=== PATIENT | female | born 1985 ===

== ENCOUNTER 2019-03-14 11:13 | Observation (INO) | payer OTHER ==
[2019-03-14] MEDS ORDERED: NALOXONE 0.4 MG/ML 1 ML VIAL IV PRN (12:07)
[2019-03-14] MEDS ORDERED: ALPRAZolam 0.25 MG TAB PO PRN (12:09)
[2019-03-14 13:06] LABS: Basophils % (A) 1 %; Eosinophils # (A) 0.1 k/uL (0-0.7); Eosinophils % (A) 2 %; HCT 37.6 % (34.0-46.0); HGB 12.3 gm/dL (11.4-16.0); Lymphocytes # (A) 1.9 k/uL (1.0-4.8); Lymphocytes % (A) 31 %; MCH 32.3 pg (25.0-35.0); MCHC 32.7 g/dL (31.0-37.0); MCV 98.9 fL (80.0-100.0); Mean Platelet Volume 8.5; Monocytes # (A) 0.3 k/uL (0-1.0); Monocytes % (A) 6 %; Neutrophils # (A) 3.7 k/uL (1.3-7.7); Neutrophils % (A) 60 %; Platelet Count 226 k/uL (150-450); RBC 3.81 m/uL (3.80-5.40); RDW 14.3 % (11.5-15.5); WBC 6.1 k/uL (3.8-10.6)
[2019-03-14 13:08] LABS: ALT 13 U/L (9-52); AST 14 U/L (14-36); African American GFR (CKD) >90 (>60 ml/min/1.73 sqM); Albumin 3.8 g/dL (3.5-5.0); Alkaline Phosphatase 57 U/L (38-126); Anion Gap 8 mmol/L; Blood Urea Nitrogen 21 mg/dL (7-17); Calcium 9.2 mg/dL (8.4-10.2); Carbon Dioxide 22 mmol/L (22-30); Chloride 109 mmol/L (98-107); Glucose 88 mg/dL (74-99); Non-African American GFR(CKD) >90 (>60 ml/min/1.73 sqM); Potassium 4.4 mmol/L (3.5-5.1); Sodium 139 mmol/L (137-145); Total Bilirubin 0.2 mg/dL (0.2-1.3); Total Protein 6.1 g/dL (6.3-8.2)
--- NOTE | 2019-03-14 13:59 | XR ---
EXAMINATION TYPE: XR chest 1V portable DATE OF EXAM: 03/14/2019 COMPARISON: NONE HISTORY: Pneumonia clinically. TECHNIQUE: Single frontal view of the chest is obtained. FINDINGS: Suboptimal visualization of the peripheral left lung base secondary to patient body habitu s. Within the remainder the lungs there is no focal air space opacity, pleural effusion, or pneumotho rax seen. The cardiac silhouette size is within normal limits. The osseous structures are intact. IMPRESSION: Suboptimal visualization of the peripheral left lung base secondary to patient body habi tus. The remainder the lungs are well aerated and clear.
[2019-03-14 14:41] VITALS: BMI 83.2
[2019-03-14] MEDS: HYDROcodone/APAP 5-325MG 1 EACH TAB PO PRN ×2 (14:44→20:22)
[2019-03-14] MEDS ORDERED: NAPROXEN 250 MG TAB PO PRN (15:03)
[2019-03-14] MEDS ORDERED: IPRATROPIUM-ALBUTEROL 3 ML NEB INHALATION PRN (15:05)
[2019-03-14] MEDS: IPRATROPIUM-ALBUTEROL 3 ML NEB INHALATION SCH ×2 (15:41→19:23)
[2019-03-14] MEDS: SODIUM CHLORIDE 0.9% 1,000 ML IV SCH (16:37)
[2019-03-14] MEDS: HYDROmorphone 0.5 MG/0.5 ML SYRINGE IVP PRN ×2 (16:41→21:41)
--- NOTE | 2019-03-14 17:26 | HP ---
HISTORY AND PHYSICAL CHIEF COMPLAINT: Chest pain. HISTORY OF PRESENT ILLNESS: 33-year-old woman with a past medical history of no significant symptoms except some allergy symptoms and not being followed by no primary physician in the outpatient setting, presented to [facility] with complaints of right-sided chest pain. The patient had right-sided chest pain radiating to the front of the chest into the back and shoulder, which is increasing with touch according to her and the patient had multiple evaluations at [facility] including CT scan and chest x-ray. The CT scan of the chest full report is awaited. Chest x-ray showed some eladio lesions on the right side. There is no history of fever, rigors or chills. No history of headache, loss of consciousness or seizures. 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 PAST MEDICAL HISTORY: Allergies, bipolar. MEDICATIONS: Prior to admission: 1. Naprosyn 220 mcg p.o. daily p.r.n. 2. Claritin 10 mg. 3. Albuterol p.r.n. 4. Tylenol p.r.n. ALLERGIES: None. FAMILY HISTORY: History of hypertension in the family. SOCIAL HISTORY: Previous history of smoking. No history of current smoking or alcohol intake. REVIEW OF SYSTEMS: ENT: No diminished vision. No diminished hearing. CARDIOVASCULAR system: As mentioned earlier. RESPIRATORY: As mentioned earlier. GI no nausea or vomiting. : No dysuria. NERVOUS SYSTEM: No numbness or weakness. ALLERGY/IMMUNOLOGY: No allergy or hayfever. MUSCULOSKELETAL as mentioned earlier. HEMATOLOGY/ONCOLOGY: No history of anemia. ENDOCRINE: No history of diabetes or hypothyroidism. CONSTITUTIONAL: As mentioned earlier. DERMATOLOGY: Negative. RHEUMATOLOGY negative. PSYCHIATRY as mentioned earlier. PHYSICAL EXAMINATION: Alert and oriented x3. Pulse is 80. Blood pressure is 128/80, respirations 20, temperature normal. Pulse ox normal. HEENT conjunctivae normal. Oral mucosa moist. NECK is no jugular venous distention. No carotid bruit. No lymph node enlargement. Cardiovascular is S1, S2 muffled. Respirations: Breath sounds diminished in the bases. A few scattered rhonchi especially on the right side. No bronchial breath sounds. ABDOMEN: Soft, nontender. No mass palpable. LEGS no edema, no swelling. NERVOUS SYSTEM: Higher functions as mentioned earlier. Moves all 4 limbs. No focal motor or sensory deficits. Lymphatics: No lymph nodes palpable in the neck, axillae or groin. Joints: No active deforming arthropathy. LABS: CBC within normal limits. Sodium 139, potassium 4.4. ASSESSMENT: 1. Right-sided chest pain, rule out coronary artery disease. 2. Possible pleurisy or tracheobronchitis rule out early pneumonia. 3. History of allergies. 4. History of degenerative joint disease. 5. History of bipolar. 6. Remote history of nicotine dependence. RECOMMENDATIONS AND DISCUSSION: In this 33-year-old woman who presented with multiple medical issues, at this time, I recommend to continue current medications, management and symptomatic treatment. Otherwise, I would also recommend pain medications, empiric bronchodilators, antibiotics. Prognosis guarded because of multiple complex medical issues. Cardiology has been consulted. A 2D echo with Doppler will be ordered. Further recommendations to follow. I also recommend the patient follow up with primary physician closely after discharge also. The patient understands and agrees. MMODL / JACLYNN: [id number] /
[2019-03-14] MEDS: TEMAZEPAM 15 MG CAP PO PRN (23:59)
[2019-03-15] MEDS: HYDROmorphone 0.5 MG/0.5 ML SYRINGE IVP PRN ×2 (06:13→15:33)
[2019-03-15 07:14] LABS: Basophils % (A) 0 %; Eosinophils # (A) 0.1 k/uL (0-0.7); Eosinophils % (A) 2 %; HCT 39.2 % (34.0-46.0); HGB 12.7 gm/dL (11.4-16.0); Lymphocytes % (A) 32 %; MCH 31.9 pg (25.0-35.0); MCHC 32.4 g/dL (31.0-37.0); MCV 98.3 fL (80.0-100.0); Monocytes # (A) 0.4 k/uL (0-1.0); Monocytes % (A) 6 %; Neutrophils # (A) 3.7 k/uL (1.3-7.7); Neutrophils % (A) 59 %; Platelet Count 238 k/uL (150-450); RBC 3.98 m/uL (3.80-5.40); RDW 13.5 % (11.5-15.5); WBC 6.2 k/uL (3.8-10.6)
[2019-03-15 07:25] LABS: African American GFR (CKD) >90 (>60 ml/min/1.73 sqM); Anion Gap 8 mmol/L; Blood Urea Nitrogen 12 mg/dL (7-17); Calcium 9.2 mg/dL (8.4-10.2); Carbon Dioxide 25 mmol/L (22-30); Chloride 106 mmol/L (98-107); Glucose 86 mg/dL (74-99); Non-African American GFR(CKD) >90 (>60 ml/min/1.73 sqM); Potassium 4.7 mmol/L (3.5-5.1); Sodium 139 mmol/L (137-145)
[2019-03-15] MEDS: IPRATROPIUM-ALBUTEROL 3 ML NEB INHALATION SCH ×4 (07:27→20:53)
[2019-03-15] MEDS: PANTOPRAZOLE 40 MG TABLET PO SCH (10:23)
[2019-03-15] MEDS: LORATADINE 10 MG TAB PO SCH (10:23)
--- NOTE | 2019-03-15 11:33 | P.CRDCN ---
History of Present Illness History of present illness: This is Cari Lay PA-C dictating a consult on this patient The patient was interviewed and examined by me as well as by Dr. Rodas Case discussed with Dr. Rodas and he agrees with the plan of care IMPRESSION / ASSESSMENT: Atypical chest discomfort, pleuritic, reproducible, likely musculoskeletal, EKG and cardiac enzymes normal Current Smoker PLAN: Obtain records from [facility] Check lipid panel, hemoglobin A1c, d-dimer Smoking cessation advised Patient is clear for discharge from a cardiology standpoint, Further cardiac workup as an outpatient HPI Patient is a 33-year-old female with no significant past medical history who presented to [facility] with complaints of chest discomfort and was transferred here for further evaluation. Her chest discomfort started as a sharp pain in the right side of her chest 2 days ago. She was sitting on the couch when it started. It is a constant sharp stabbing pain in the right side that radiates to her right shoulder blade. It is worse when she takes a deep breath or pulls herself up using her right arm. Sometimes pressing on it relieves it. She admits to associated diaphoresis. She has never had symptoms like this before. She has also had a cough for the last week with some productive white sputum in the morning which she attributes to her ALLERGIES. Denies fevers or chills. Denies dyspnea on exertion. Denies dizziness, lightheadedness or syncope. Per the notes the patient had a computed tomography scan and chest x-ray which showed some eladio lesions on the right side at [facility], I do not have the reports. Her x-ray here shows no focal airspace opacities. Her EKG shows sinus mechanism, normal TN, narrow QRS, no ST changes noted. Her troponins are negative 3. Patient seen and examined resting comfortably in bed. She is being treated with [place] and Dilaudid and states her pain has improved with the pain medications. She has smoked cigarettes on and off for the last 20 years Has not seen a primary care provider in the last few years due to losing insu warner ROS: No fevers, chills or rigors, postive for productive cough no nausea, vomiting or diarrhea, no hematuria, dysuria, no strokes or seizures, no skin lesions. EXAMINATION: Temperature 97.4F, pulse 94, respirations 16, blood pressure 109/74, oxygen saturation 96% on room air Patient seen and examined resting in bed, no acute distress Lungs are clear to auscultation bilaterally, no rhonchi, wheezing or crackles appreciated Heart is regular, normal S1-S2, no murmurs appreciated No lower extremity edema noted Abdomen soft and nontender REVIEW OF LABS, ECG & MEDICAL DATA Chest x-ray showed no focal airspace opacity, pleural effusion or pneumothorax WBC 6.2, hemoglobin 12.7, potassium 4.7, BUNs 12, creatinine 0.57, troponins negative 3, Past Medical History Past Medical History: No Reported History History of Any Multi-Drug Resistant Organisms: None Reported Additional Past Surgical History / Comment(s): neck surgery, 3 discs replaced 2013 Past Anesthesia/Blood Transfusion Reactions: No Reported Reaction Past Psychological History: Bipolar Smoking Status: Former smoker Past Alcohol Use History: Occasional Past Drug Use History: None Reported - Past Family History Mother Family Medical History: Hypertension Father Family Medical History: Hypertension Medications and Allergies Home Medications Medication Instructions Recorded Confirmed Type Acetaminophen Tab [Tylenol Tab] 650 mg PO Q6H PRN 03/14/19 03/14/19 History Albuterol Sulfate [Proair Hfa] 2 puff INHALATION RT-Q6H PRN 03/14/19 03/14/19 History Loratadine [Claritin] 10 mg PO DAILY 03/14/19 03/14/19 History Naproxen Sodium [Aleve] 220 mg PO DAILY PRN 03/14/19 03/14/19 History Allergies Allergy/AdvReac Type Severity Reaction Status Date / Time No Known Allergies Allergy Verified 03/14/19 14:27 Physical Exam Vitals: Vital Signs Temp Pulse Resp BP Pulse Ox 03/15/19 08:00 97.4 F L 94 16 109/74 96 03/15/19 04:00 97.5 F L 72 20 102/62 95 03/15/19 03:40 16 03/14/19 23:56 97.8 F 58 L 16 95/58 96 03/14/19 23:29 18 03/14/19 21:52 97.5 F L 87 18 152/90 94 L 03/14/19 20:00 18 03/14/19 19:49 98.1 F 68 16 103/63 98 03/14/19 15:55 97.6 F 74 17 98/65 94 L 03/14/19 15:39 99 Intake and Output 03/14/19 03/15/19 03/15/19 22:59 06:59 14:59 Other: # Voids 1 1 Weight 90.718 kg Results 03/15/19 06:31 03/15/19 06:31 Cardiac Enzymes 03/14/19 03/14/19 03/15/19 Range/Units 12:34 12:34 00:34 AST 14 (14-36) U/L Troponin I <0.012 <0.012 (0.000-0.034) ng/mL 03/15/19 Range/Units 06:31 AST (14-36) U/L Troponin I <0.012 (0.000-0.034) ng/mL CBC 03/14/19 03/15/19 Range/Units 12:34 06:31 WBC 6.1 6.2 (3.8-10.6) k/uL RBC 3.81 3.98 (3.80-5.40) m/uL Hgb 12.3 12.7 (11.4-16.0) gm/dL Hct 37.6 39.2 (34.0-46.0) % Plt Count 226 238 (150-450) k/uL Comprehensive Metabolic Panel 03/14/19 03/15/19 Range/Units 12:34 06:31 Sodium 139 139 (137-145) mmol/L Potassium 4.4 4.7 (3.5-5.1) mmol/L Chloride 109 H 106 (98-107) mmol/L Carbon Dioxide 22 25 (22-30) mmol/L BUN 21 H 12 (7-17) mg/dL Creatinine 0.59 0.57 (0.52-1.04) mg/dL Glucose 88 86 (74-99) mg/dL Calcium 9.2 9.2 (8.4-10.2) mg/dL AST 14 (14-36) U/L ALT 13 (9-52) U/L Alkaline Phosphatase 57 (38-126) U/L Total Protein 6.1 L (6.3-8.2) g/dL Albumin 3.8 (3.5-5.0) g/dL Current Medications Generic Name Dose Route Start Last Admin Trade Name Freq PRN Reason Stop Dose Admin Hydrocodone Bitart/Acetaminophen 1 each 03/14/19 12:09 03/14/19 20:22 [place] 5-325 PO 1 each Q6HR PRN Administration MODERATE Pain Albuterol/Ipratropium 3 ml 03/14/19 16:00 03/15/19 07:27 Duoneb 0.5 Mg-3 Mg/3 Ml Soln INHALATION Not Given RT-QID ALONSO Albuterol/Ipratropium 3 ml 03/14/19 15:05 Duoneb 0.5 Mg-3 Mg/3 Ml Soln INHALATION RT-QID PRN Shortness Of Breath Or Wheezing Alprazolam 0.25 mg 03/14/19 12:09 03/15/19 06:17 Xanax PO 0.25 mg TID PRN Administration Anxiety Hydromorphone HCl 0.5 mg 03/14/19 12:09 03/15/19 06:13 Dilaudid IVP 0.5 mg Q6HR PRN Administration Severe Pain Sodium Chloride 1,000 mls @ 20 mls/hr 03/14/19 12:15 03/14/19 16:37 Saline 0.9% IV 20 mls/hr .Q24H ALONSO Administration Ceftriaxone Sodium 1 gm/ 50 mls @ 100 mls/hr 03/14/19 15:15 03/14/19 16:37 Sodium Chloride IVPB 100 mls/hr Q24HR ALONSO Administration Loratadine 10 mg 03/15/19 09:00 Claritin PO DAILY ALONSO Naloxone HCl 0.2 mg 03/14/19 12:07 Narcan IV Q2M PRN Opioid Reversal Naproxen 250 mg 03/14/19 15:03 Naprosyn PO DAILY PRN Pain Pantoprazole Sodium 40 mg 03/15/19 07:30 Protonix PO AC-BRKFST ALONSO Temazepam 15 mg 03/14/19 12:09 03/14/19 23:59 Restoril PO 15 mg HS PRN Administration Insomnia Intake and Output 03/14/19 03/15/19 03/15/19 22:59 06:59 14:59 Other: # Voids 1 1 Weight 90.718 kg 03/15/19 06:31 03/15/19 06:31
[2019-03-15 12:17] LABS: Cholesterol 155 mg/dL (<200); HDL Cholesterol 40 mg/dL (40-60); LDL Cholesterol,Calculated 91 mg/dL (0-99); Triglycerides 119 mg/dL (<150)
[2019-03-15] MEDS: KETOROLAC 30 MG/ML 1 ML VIAL IVP PRN ×2 (12:26→19:50)
--- NOTE | 2019-03-15 17:21 | PN ---
PROGRESS NOTE DATE OF SERVICE: 03/15/2019. This is a 33-year-old woman who was admitted after right-sided chest pain is being closely monitored at this time. Cardiology has recommended outpatient followup. No chest pain. No palpitations. No fever. EXAM: Alert and oriented x3. Pulse is 79, blood pressure 118/80, respiration 17, temperature 97.9, pulse ox 98% on room air. HEENT is conjunctivae normal. NECK: No JVD. CARDIOVASCULAR: S1, S2 muffled. RESPIRATIONS: Breath sounds diminished in the bases. A few scattered rhonchi. No crackles. ABDOMEN is soft, nontender. LEGS are no edema. No swelling. LABS: CBC, BMP within normal limits. Lipid panel normal. ASSESSMENT: 1. Right-sided chest pain. Myocardial infarction ruled out possible pleurisy. 2. Possible acute purulent tracheobronchitis with failure of outpatient treatment. 3. History of allergies. 4. History of degenerative joint disease. 5. History of bipolar. 6. Remote history of nicotine dependence. RECOMMENDATIONS AND DISCUSSION: Recommend to continue current medications, management and symptomatic treatment. Continue with a course of antibiotics. We will closely follow with Cardiology. Otherwise, further recommendations to follow. See orders for details. MMODL / IJN: [id number] /
[2019-03-15] MEDS: SODIUM CHLORIDE 0.9% 1,000 ML IV SCH (18:07)
[2019-03-15] MEDS ORDERED: DOCUSATE 100 MG CAP PO PRN (19:52)
[2019-03-15 21:04] LABS: Hemoglobin A1C 5.5 % (4.0-6.0)
[2019-03-15] MEDS: TEMAZEPAM 15 MG CAP PO PRN (22:44)
[2019-03-16] MEDS: KETOROLAC 30 MG/ML 1 ML VIAL IVP PRN (03:58)
[2019-03-16] MEDS: IPRATROPIUM-ALBUTEROL 3 ML NEB INHALATION SCH (07:19)
[2019-03-16] MEDS: PANTOPRAZOLE 40 MG TABLET PO SCH (07:47)
[2019-03-16] MEDS: LORATADINE 10 MG TAB PO SCH (07:47)
[2019-03-16 07:50] VITALS: PULSE 77
[2019-03-16] MEDS: HYDROcodone/APAP 5-325MG 1 EACH TAB PO PRN (08:50)
[2019-03-16 09:15] VITALS: BP 106/69; RESP 18; TEMP 97.9
--- NOTE | 2019-03-16 10:58 | P.PN ---
Subjective This is Cari Lay PA-C dictating a progress note on this patient The patient was interviewed and examined by me as well as by Dr. Rodas Case discussed with Dr. Rodas and he agrees with the plan of care IMPRESSION / ASSESSMENT: Atypical pleuritic chest discomfort, improved, has been started on antibiotics for possible pleurisy Current smoker PLAN: Patient is cleared for discharge from a cardiology standpoint and will follow-up in 3 weeks at the office Again discussed importance of smoking cessation with the patient HPI/interval history Patient is a 33-year-old female with past medical history of smoking who presented with complaints of chest discomfort. Her troponins and EKG were normal. She has been started on antibiotics for possible pleurisy. Patient seen and examined sitting up in her chair. States her chest pain has improved significantly. EXAMINATION Temperature 97.9F, pulse 77, respirations 18, blood pressure 106/69, oxygen saturation 96% on room air Patient seen and examined sitting up in the chair, no acute distress Lungs clear to auscultation bilaterally Heart is regular, normal S1-S2, no murmurs appreciated REVIEW OF LABS, ECG WBC 6.2, hemoglobin 12.7, potassium 4.7, creatinine 0.57, BUN 12 D-dimer negative Hemoglobin A1c 5.5 Total cholesterol 155, triglycerides 119, LDL 91, HDL 40 Objective - Vital Signs Vital signs: Vital Signs Temp 97.9 F 03/16/19 08:00 Pulse 77 03/16/19 08:00 Resp 18 03/16/19 08:00 BP 106/69 03/16/19 08:00 Pulse Ox 96 03/16/19 08:00 Intake & Output 03/15/19 03/16/19 03/16/19 18:59 06:59 18:59 Other: Voiding Method Toilet # Voids 1 1 - Labs CBC & Chem 7: 03/15/19 06:31 03/15/19 06:31
--- NOTE | 2019-03-17 09:29 | DS ---
DISCHARGE SUMMARY DATE OF SERVICE: 03/16/2019. FINAL DIAGNOSES: 1. Acute right-sided chest pain with possibly musculoskeletal or pleurisy. 2. Possible acute purulent tracheobronchitis with failure of outpatient treatment. 3. History of allergies. 4. History of degenerative joint disease. 5. History of bipolar. 6. Remote history of nicotine dependence. DISCHARGE DISPOSITION: Patient will be discharged in stable condition with guarded prognosis. HISTORY OF PRESENT ILLNESS: This 33-year-old woman with a past medical history of multiple medical problems previously followed by Dr. Cl Ramirez in the outpatient setting was admitted with right-sided chest pain. Patient treated empirically symptomatically. Patient improved significantly. The patient was also seen by Cardiology. On exam, vitals are stable. Cardiovascular: S1, S2. Abdomen soft. NERVOUS SYSTEM: No focal deficits. DISCHARGE ADVICE AND MEDICATIONS: 1. Diet is cardiac diet. 2. Activity limited until followup. 3. Follow up with Dr. Cl Ramirez in 2-3 days. 4. Follow up with Cardiology as recommended. DISCHARGE MEDICATIONS: 1. Naprosyn 220 mg daily p.r.n. 2. Claritin 10 mg p.o. daily. 3. Albuterol p.r.n. 4. Tylenol p.r.n. 5. Ceftin 500 mg p.o. b.i.d. for 3 days. 6. Naprosyn 250 mg t.i.d. 7. Protonix 40 mg p.o. daily. MMODL / IJN: [id number] /
== END 2019-03-16 11:21 | disposition home or self-care (01) ==
LOC: 1SOBS 11:13
PROVIDERS: ADMIT Internal Medicine; ATTEND Internal Medicine
DX: R07.89 Other chest pain (principal); R07.81 Pleurodynia; R61 Generalized hyperhidrosis; R05 Cough; M19.90 Unspecified osteoarthritis, unspecified site; T78.40XA Allergy, unspecified, initial encounter; F31.9 Bipolar disorder, unspecified; Z87.891 Personal history of nicotine dependence; Z79.1 Long term (current) use of non-steroidal anti-inflammatories (NSAID); Z79.899 Other long term (current) drug therapy; Z82.49 Family history of ischemic heart disease and other diseases of the circulatory system
CPT/HCPCS: 96365; 96366; 96375 ×2; 96376 ×3; 94640; 94760; 85379; 80061; 80053; 80048; 85652; 84484 ×2; 85025 ×2; 86140; 83036; 71045; G0378 ×3; G0379; J0696 ×3; J1885 ×2; J1170 ×2; 93005